=== PATIENT | male | born 1980 | race Caucasian/White ===

== ENCOUNTER 2016-09-19 18:44 | Emergency (ER) | payer OTHER ==
[~2016-09-19 18:44] MED LIST: ATARAX PO; CLEOCIN PO; CLINDAMYCIN HC300 MG PO; NO MEDICATIONS; TYLENOL #3 PO
== END 2016-09-19 19:53 | disposition home or self-care (01) ==
LOC: SED 18:44
DX: L03.221 Cellulitis of neck (principal); F17.210 Nicotine dependence, cigarettes, uncomplicated; Z98.890 Other specified postprocedural states
CPT/HCPCS: 99283